=== PATIENT | female | born 1990 | race Caucasian/White ===

== ENCOUNTER 2017-11-24 19:22 | Emergency (ER) | payer OTHER ==
[2017-11-24 19:32] VITALS: RESP 18
[2017-11-24] MEDS ORDERED: METOCLOPRAMIDE 5 MG/ML 2 ML VIAL IVP STA (20:20)
[2017-11-24] MEDS ORDERED: SODIUM CHLORIDE 0.9% 1,000 ML IV STA (20:20)
[2017-11-24] MEDS ORDERED: diphenhydrAMINE 50 MG/ML 1 ML VIAL IVP STA (20:20)
[2017-11-24] MEDS ORDERED: KETOROLAC 30 MG/ML 1 ML VIAL IVP STA (20:20)
[2017-11-24] MEDS ORDERED: ORPHENADRINE 30 MG/ML 2 ML VIAL IVP STA (20:21)
--- NOTE | 2017-11-24 20:22 | ED ---
Headache HPI - General Chief Complaint: Headache Stated Complaint: unrelenting migraine Time Seen by Provider: 11/24/17 20:08 Source: RN notes reviewed, old records reviewed Mode of arrival: ambulatory Limitations: no limitations - History of Present Illness Initial Comments: 27-year-old [employer] presents emergency department today she complaint of migraine headache that started at 4 PM. She reports that she works as a need a note for work. Patient states that she has history of migraines. She states that she usually gets them once or twice a month of this week this month she's had them more frequently. Patient states that she has no significant blurry vision or any other neurological findings or deficits. - Related Data Home Medications Medication Instructions Recorded Confirmed Lurasidone [Latuda] 40 mg PO DAILY 11/24/17 11/24/17 Phentermine HCl [Adipex-P] 37.5 mg PO QAM 11/24/17 11/24/17 lamoTRIgine [LaMICtal] 200 mg PO BID 11/24/17 11/24/17 Previous Rx's Medication Instructions Recorded Ondansetron Odt [Zofran Odt] 4 mg PO Q8HR PRN #12 tab 11/24/17 Allergies Allergy/AdvReac Type Severity Reaction Status Date / Time Sulfa (Sulfonamide Allergy Rash/Hives Verified 11/24/17 20:10 Antibiotics) sulfamethoxazole Allergy Rash/Hives Verified 11/24/17 20:10 [From Bactrim] trimethoprim [From Bactrim] Allergy Rash/Hives Verified 11/24/17 20:10 Review of Systems ROS Statement: Those systems with pertinent positive or pertinent negative responses have been documented in the HPI. ROS Other: All systems not noted in ROS Statement are negative. Past Medical History Additional Past Medical History / Comment(s): FX OF LEFT FOOT, History of Any Multi-Drug Resistant Organisms: None Reported Past Surgical History: Tonsillectomy, Tubal Ligation Additional Past Surgical History / Comment(s): LEEP Past Anesthesia/Blood Transfusion Reactions: Postoperative Nausea & Vomiting ( PONV) Past Psychological History: Anxiety, Bipolar, Depression Smoking Status: Former smoker Past Alcohol Use History: None Reported Past Drug Use History: None Reported - Past Family History Mother Family Medical History: Cancer Additional Family Medical History / Comment(s): TYHROID General Exam - General Exam Comments Initial Comments: Well appearing 27 year old female, no distress. Limitations: no limitations General appearance: alert, in no apparent distress Head exam: Present: atraumatic, normocephalic, normal inspection Eye exam: Present: normal appearance, PERRL, EOMI. Absent: scleral icterus, conjunctival injection, periorbital swelling ENT exam: Present: normal exam, mucous membranes moist Neck exam: Present: normal inspection. Absent: tenderness, meningismus, lymphadenopathy Respiratory exam: Present: normal lung sounds bilaterally. Absent: respiratory distress, wheezes, rales, rhonchi, stridor Cardiovascular Exam: Present: regular rate, normal rhythm, normal heart sounds. Absent: systolic murmur, diastolic murmur, rubs, gallop, clicks GI/Abdominal exam: Present: soft, normal bowel sounds. Absent: distended, tenderness, guarding, rebound, rigid Back exam: Present: normal inspection Neurological exam: Present: alert, oriented X3, CN II-XII intact Psychiatric exam: Present: normal affect, normal mood Skin exam: Present: warm, dry, intact, normal color. Absent: rash Course Vital Signs 11/24/17 11/24/17 19:30 21:45 Temperature 98.3 F 98.2 F Pulse Rate 103 H 69 Respiratory 18 18 Rate Blood Pressure 118/71 105/59 O2 Sat by Pulse 100 99 Oximetry Medical Decision Making - Medical Decision Making Patient is a 27 year old female with migraine headache for a few hours. Patient has no neurologicacl deficits and states this is siiliar to all previous migraines. Patient was given migraine cocktail and reports that her migrinae is diminished and 1 out of 10 pain. She would like to go home. will discharge patient with nausea medication to use if she has reccurent migraine. All questions answered and return parameters discussed. Disposition Clinical Impression: Migraine Disposition: HOME SELF-CARE Condition: Good Instructions: Migraine Headache (ED) Additional Instructions: Patient advised to follow-up with primary care provider. Take the nausea medicine, Motrin Tylenol or Benadryl as well. Return to the emergency department if any alarming signs or symptoms occur. Prescriptions: Ondansetron Odt [Zofran Odt] 4 mg PO Q8HR PRN #12 tab PRN Reason: Nausea Referrals: Radhames Oshea MD [Primary Care Provider] - 1-2 days Time of Disposition: 21:13
[2017-11-24 21:46] VITALS: BP 105/59; PULSE 69; TEMP 98.2
== END 2017-11-24 21:46 | disposition home or self-care (01) ==
LOC: EC 19:22
DX: G43.909 Migraine, unspecified, not intractable, without status migrainosus (principal); F31.9 Bipolar disorder, unspecified; F41.9 Anxiety disorder, unspecified; Z87.891 Personal history of nicotine dependence; Z79.899 Other long term (current) drug therapy; Z88.2 Allergy status to sulfonamides
CPT/HCPCS: 99283; 96374; 96375 ×3; 96361; J1200; J2360; J2765; J1885

== ENCOUNTER 2018-01-11 20:25 | Emergency (ER) | payer OTHER ==
[2018-01-11 20:39] VITALS: BP 118/80; PULSE 108; RESP 18; TEMP 97.8
--- NOTE | 2018-01-11 21:14 | ED ---
Psych HPI - General Chief Complaint: Psychiatric Symptoms Stated Complaint: mental health Time Seen by Provider: 01/11/18 21:02 Source: patient Mode of arrival: ambulatory - History of Present Illness Initial Comments: 's patient is 27-year-old woman who states that she has a diagnosis of bipolar disorder and presents today because she feels her symptoms are getting worse. She states that she has been experiencing mood swings, increasing depression, and also having thoughts of suicide. She states that her medications were changed one month ago. She is currently taking Latuda and Geodon. She states the Geodon was started about a month ago the Lamictal was stopped. She feels that since that time her symptoms have been worsening. She feels she is not able to function. She is not sleeping well. MD Complaint: suicidal ideation, feels depressed -: days(s) Associated Psychiatric Symptoms: suicidal ideation, racing thoughts History of same: Yes Quality: getting worse Improves With: none Worsens With: none Context: new medication(s) - Related Data Home Medications Medication Instructions Recorded Confirmed Lurasidone [Latuda] 40 mg PO DAILY 11/24/17 01/11/18 Ziprasidone [Geodon] 20 mg PO DAILY 01/11/18 01/11/18 Allergies Allergy/AdvReac Type Severity Reaction Status Date / Time Sulfa (Sulfonamide Allergy Rash/Hives Verified 01/11/18 22:12 Antibiotics) sulfamethoxazole Allergy Rash/Hives Verified 01/11/18 22:12 [From Bactrim] trimethoprim [From Bactrim] Allergy Rash/Hives Verified 01/11/18 22:12 Review of Systems ROS Statement: Those systems with pertinent positive or pertinent negative responses have been documented in the HPI. ROS Other: All systems not noted in ROS Statement are negative. Constitutional: Denies: fever Eyes: Denies: vision change Respiratory: Denies: cough, dyspnea Cardiovascular: Denies: chest pain, syncope Gastrointestinal: Denies: abdominal pain, vomiting, diarrhea Genitourinary: Denies: dysuria, hematuria Musculoskeletal: Denies: back pain Skin: Denies: rash Neurological: Denies: headache, weakness Psychiatric: Reports: depression, suicidal thoughts. Denies: auditory hallucinations, visual hallucinations, homicidal thoughts Past Medical History Past Medical History: No Reported History Additional Past Medical History / Comment(s): FX OF LEFT FOOT, History of Any Multi-Drug Resistant Organisms: None Reported Past Surgical History: Tonsillectomy, Tubal Ligation Additional Past Surgical History / Comment(s): LEEP Past Anesthesia/Blood Transfusion Reactions: Postoperative Nausea & Vomiting ( PONV) Past Psychological History: Anxiety, Bipolar, Depression Smoking Status: Light tobacco smoker Past Alcohol Use History: None Reported Past Drug Use History: None Reported - Past Family History Mother Family Medical History: Cancer Additional Family Medical History / Comment(s): TYHROID General Exam Limitations: no limitations General appearance: alert, in no apparent distress, other (Tearful) Head exam: Present: atraumatic, normocephalic Eye exam: Present: normal appearance. Absent: scleral icterus, conjunctival injection ENT exam: Present: normal oropharynx, mucous membranes moist Respiratory exam: Present: normal lung sounds bilaterally. Absent: respiratory distress, wheezes, rales, rhonchi, stridor Cardiovascular Exam: Present: regular rate, normal rhythm, normal heart sounds. Absent: systolic murmur, diastolic murmur, rubs, gallop GI/Abdominal exam: Present: soft. Absent: distended, tenderness, guarding Extremities exam: Present: normal inspection, normal capillary refill Neurological exam: Present: alert Psychiatric exam: Present: depressed, suicidal ideation. Absent: agitated, flat affect, manic, homicidal ideation Skin exam: Present: warm, dry, intact, normal color. Absent: rash Course Vital Signs 01/11/18 20:35 Temperature 97.8 F Pulse Rate 108 H Respiratory 18 Rate Blood Pressure 118/80 O2 Sat by Pulse 99 Oximetry Medical Decision Making - Lab Data Lab Results 01/11/18 01/11/18 Range/Units 20:34 20:34 Urine HCG, Qual Not Detected (Not Detectd) Urine Opiates Screen Not Detected (NotDetected) Ur Oxycodone Screen Not Detected (NotDetected) Urine Methadone Screen Not Detected (NotDetected) Ur Propoxyphene Screen Not Detected (NotDetected) Ur Barbiturates Screen Not Detected (NotDetected) U Tricyclic Antidepress Not Detected (NotDetected) Ur Phencyclidine Scrn Not Detected (NotDetected) Ur Amphetamines Screen Detected H (NotDetected) U Methamphetamines Scrn Not Detected (NotDetected) U Benzodiazepines Scrn Not Detected (NotDetected) Urine Cocaine Screen Not Detected (NotDetected) U Marijuana (THC) Screen Not Detected (NotDetected) Disposition Clinical Impression: Mood disorder Disposition: HOME SELF-CARE Condition: Good Instructions: Mood Disorders (ED) Is patient prescribed a controlled substance at d/c from ED?: No Referrals: Radhames Oshea MD [Primary Care Provider] - 1-2 days
[2018-01-11 21:25] LABS: Amphetamine Screen,Urine Detected (NotDetected); Barbiturate Screen,Urine Not Detected (NotDetected); Benzodiazepines Screen,Urine Not Detected (NotDetected); Cocaine Screen,Urine Not Detected (NotDetected); Methadone Screen, Urine Not Detected (NotDetected); Opiate Screen,Urine Not Detected (NotDetected); Oxycodone Screen, Urine Not Detected (NotDetected); Phencyclidine Screen,Urine Not Detected (NotDetected); Tricyclic Antidepressant,Urine Not Detected (NotDetected); Urn Cannabinoid Scrn Not Detected (NotDetected)
[2018-01-11] MEDS ORDERED: LORazepam 1 MG TAB ONE (23:30)
== END 2018-01-11 23:20 | disposition home or self-care (01) ==
LOC: EC 20:25
DX: F31.9 Bipolar disorder, unspecified (principal); F41.9 Anxiety disorder, unspecified; F17.200 Nicotine dependence, unspecified, uncomplicated; Z79.899 Other long term (current) drug therapy; Z88.2 Allergy status to sulfonamides
CPT/HCPCS: 80306; 81025; 82075; 99284

== ENCOUNTER 2018-03-16 02:02 | Emergency (ER) | payer OTHER ==
[2018-03-16] MEDS ORDERED: METOCLOPRAMIDE 5 MG/ML 2 ML VIAL IVP STA (02:30)
[2018-03-16] MEDS ORDERED: KETOROLAC 30 MG/ML 1 ML VIAL IVP STA (02:30)
[2018-03-16] MEDS ORDERED: diphenhydrAMINE 50 MG/ML 1 ML VIAL IVP STA (02:30)
[2018-03-16] MEDS ORDERED: SODIUM CHLORIDE 0.9% 1,000 ML IV ONE (02:30)
[2018-03-16 03:39] VITALS: BP 102/52; PULSE 61; RESP 18; TEMP 98.3
--- NOTE | 2018-03-16 04:09 | ED ---
Headache HPI - General Chief Complaint: Headache Stated Complaint: Migraine Time Seen by Provider: 03/16/18 02:11 Mode of arrival: ambulatory Limitations: no limitations - History of Present Illness Initial Comments: 28-year-old female patient presents the emergency department today for evaluation of migraine headache. Migraine started approximately 7 AM yesterday morning. Patient states that the headache is mostly frontal. States she is sensitive to light and sound. Patient states she is mildly nauseated. She denies any dizziness, numbness, tingling, or weakness. Patient states she does have a history of migraine headaches. States that her symptoms are typical for her usual migraine pattern. She denies any new symptoms. States she did take Excedrin earlier today without relief of symptoms. Patient denies any recent rash, fever, chills, shortness breath, chest pain, abdominal pain, diarrhea, constipation, back pain, hematuria, dysuria, urinary urgency, urinary frequency , or any other complaints. - Related Data Home Medications Medication Instructions Recorded Confirmed Lurasidone [Latuda] 40 mg PO DAILY 11/24/17 01/11/18 Ziprasidone [Geodon] 20 mg PO DAILY 01/11/18 01/11/18 Allergies Allergy/AdvReac Type Severity Reaction Status Date / Time Sulfa (Sulfonamide Allergy Rash/Hives Verified 03/16/18 02:07 Antibiotics) sulfamethoxazole Allergy Rash/Hives Verified 03/16/18 02:07 [From Bactrim] trimethoprim [From Bactrim] Allergy Rash/Hives Verified 03/16/18 02:07 Review of Systems ROS Statement: Those systems with pertinent positive or pertinent negative responses have been documented in the HPI. ROS Other: All systems not noted in ROS Statement are negative. Past Medical History Past Medical History: No Reported History Additional Past Medical History / Comment(s): FX OF LEFT FOOT, migraines History of Any Multi-Drug Resistant Organisms: None Reported Past Surgical History: Tonsillectomy, Tubal Ligation Additional Past Surgical History / Comment(s): LEEP Past Anesthesia/Blood Transfusion Reactions: Postoperative Nausea & Vomiting ( PONV) Past Psychological History: Anxiety, Bipolar, Depression Smoking Status: Light tobacco smoker Past Alcohol Use History: None Reported Past Drug Use History: None Reported - Past Family History Mother Family Medical History: Cancer Additional Family Medical History / Comment(s): TYHROID General Exam Limitations: no limitations General appearance: alert, in no apparent distress, other (This is a well- developed, well-nourished adult female patient in no acute distress. Vital signs upon presentation are temperature 98.2F, pulse 81, respirations 16, blood pressure 103/65, pulse ox 99% on room air.) Eye exam: Present: normal appearance, PERRL, EOMI. Absent: scleral icterus, conjunctival injection, nystagmus, periorbital swelling ENT exam: Present: normal exam, normal oropharynx, mucous membranes moist Neck exam: Present: normal inspection. Absent: tenderness, meningismus, lymphadenopathy Respiratory exam: Present: normal lung sounds bilaterally. Absent: respiratory distress, wheezes, rales, rhonchi, stridor Cardiovascular Exam: Present: regular rate, normal rhythm, normal heart sounds. Absent: systolic murmur, diastolic murmur, rubs, gallop, clicks Neurological exam: Present: alert, oriented X3, CN II-XII intact, other ( Strength in all 4 extremities is 5/5.) Psychiatric exam: Present: normal affect, normal mood Skin exam: Present: warm, dry, intact, normal color. Absent: rash Course Vital Signs 03/16/18 03/16/18 02:05 03:34 Temperature 98.2 F 98.3 F Pulse Rate 81 61 Respiratory 16 18 Rate Blood Pressure 103/65 102/52 O2 Sat by Pulse 99 100 Oximetry Medical Decision Making - Medical Decision Making 28-year-old female patient presented to the emergency department today for evaluation of migraine headache. States her symptoms are very typical for her usual migraine pattern. Physical examination is unremarkable. Patient is neurologically intact. Patient did receive IV fluids, Reglan, Benadryl, and Toradol here in the emergency department. Upon reevaluation patient is much improved, rating her pain is 0 out of 10 on the pain scale. She states she is ready to be discharged. She is instructed to follow-up with her primary care physician for recheck in 1-2 days. Return parameters discussed in detail. She verbalizes understanding and agrees with this plan. Disposition Clinical Impression: Migraine headache Disposition: HOME SELF-CARE Condition: Good Instructions: Migraine Headache (ED) Additional Instructions: Increase fluids. Rest. Follow up with your primary care physician for recheck in 1-2 days. Return here immediately for any new, worsening, or concerning symptoms. Is patient prescribed a controlled substance at d/c from ED?: No Referrals: Radhames Oshea MD [Primary Care Provider] - 1-2 days Time of Disposition: 04:09
== END 2018-03-16 04:17 | disposition home or self-care (01) ==
LOC: EC 02:02
DX: G43.909 Migraine, unspecified, not intractable, without status migrainosus (principal); F41.9 Anxiety disorder, unspecified; F31.9 Bipolar disorder, unspecified; F17.200 Nicotine dependence, unspecified, uncomplicated; Z79.899 Other long term (current) drug therapy; Z88.1 Allergy status to other antibiotic agents; Z88.2 Allergy status to sulfonamides
CPT/HCPCS: 99283; 96374; 96375 ×2; 96361; J1200; J2765; J1885

== ENCOUNTER 2018-07-20 00:24 | Emergency (ER) | payer OTHER ==
--- NOTE | 2018-07-20 01:17 | ED ---
General Adult HPI - General Source: patient, RN notes reviewed Mode of arrival: ambulatory Limitations: no limitations <Ryan Borrero P - Last Filed: 07/20/18 02:39> <Mariel Melendez P - Last Filed: 07/20/18 03:58> - General Chief complaint: Abdominal Pain Stated complaint: poss ectopic Time Seen by Provider: 07/20/18 00:35 - History of Present Illness Initial comments: 28-year-old female presents to the emergency department for a chief complaint of lower abdominal cramping times one week. Patient states she has also had breast tenderness for the past month. She states that yesterday she started her period but it is forest fire fighter than normal. Patient states that all the symptoms are consistent with her past . She states that she had a tubal ligation 5 years ago but checked a test earlier today. Patient says the test was positive and she is concerned for ectopic . She denies any pain but admits to the cramping. She denies any vaginal discharge besides bleeding. She admits to mild nausea times one day but denies vomiting. She states that she think this is due to nerves. Patient has no other complaints at this time including shortness of breath, chest pain, abdominal pain, nausea or vomiting, headache, or visual changes. (Ryan Borrero) - Related Data Home Medications Medication Instructions Recorded Confirmed Lurasidone [Latuda] 40 mg PO DAILY 11/24/17 01/11/18 Ziprasidone [Geodon] 20 mg PO DAILY 01/11/18 01/11/18 Allergies Allergy/AdvReac Type Severity Reaction Status Date / Time Sulfa (Sulfonamide Allergy Rash/Hives Verified 07/20/18 00:32 Antibiotics) sulfamethoxazole Allergy Rash/Hives Verified 07/20/18 00:32 [From Bactrim] trimethoprim [From Bactrim] Allergy Rash/Hives Verified 07/20/18 00:32 Review of Systems ROS Other: All systems not noted in ROS Statement are negative. <Ryan Borrero P - Last Filed: 07/20/18 02:39> ROS Other: All systems not noted in ROS Statement are negative. <Mariel Melendez P - Last Filed: 07/20/18 03:58> ROS Statement: Those systems with pertinent positive or pertinent negative responses have been documented in the HPI. Past Medical History Past Medical History: No Reported History Additional Past Medical History / Comment(s): migraines History of Any Multi-Drug Resistant Organisms: None Reported Past Surgical History: Tonsillectomy, Tubal Ligation Additional Past Surgical History / Comment(s): LEEP Past Anesthesia/Blood Transfusion Reactions: Postoperative Nausea & Vomiting ( PONV) Past Psychological History: Anxiety, Depression Smoking Status: Current some day smoker Past Alcohol Use History: None Reported Past Drug Use History: None Reported - Past Family History Mother Family Medical History: Cancer Additional Family Medical History / Comment(s): TYHROID <Ryan Borrero P - Last Filed: 07/20/18 02:39> General Exam Limitations: no limitations General appearance: alert, in no apparent distress Head exam: Present: atraumatic, normocephalic, normal inspection Eye exam: Present: normal appearance, PERRL, EOMI. Absent: scleral icterus, conjunctival injection, periorbital swelling ENT exam: Present: normal exam, normal oropharynx, mucous membranes moist Neck exam: Present: normal inspection. Absent: tenderness, meningismus, lymphadenopathy Respiratory exam: Present: normal lung sounds bilaterally. Absent: respiratory distress, wheezes, rales, rhonchi, stridor Cardiovascular Exam: Present: regular rate, normal rhythm, normal heart sounds. Absent: systolic murmur, diastolic murmur, rubs, gallop, clicks GI/Abdominal exam: Present: soft, normal bowel sounds. Absent: distended, tenderness, guarding, rebound, rigid Neurological exam: Present: alert, oriented X3, CN II-XII intact Psychiatric exam: Present: normal affect, normal mood <Ryan Borrero P - Last Filed: 07/20/18 02:39> Vital Signs 07/20/18 07/20/18 00:28 02:58 Temperature 98.2 F 97.3 F L Pulse Rate 90 75 Respiratory 18 16 Rate Blood Pressure 98/61 107/70 O2 Sat by Pulse 100 99 Oximetry Medical Decision Making - Lab Data Result diagrams: 07/20/18 01:30 07/20/18 01:30 <Ryan Borrero P - Last Filed: 07/20/18 02:39> - Lab Data Result diagrams: 07/20/18 01:30 07/20/18 01:30 <Mariel Melendez P - Last Filed: 07/20/18 03:58> - Medical Decision Making 28-year-old female resents to the emergency department for a chief complaint of abdominal cramping times one week. Patient is concerned she may be and had a tubal ligation so is concern for ectopic . Patient states she is unsure if it is an ectopic or if she is having a period that is different than normal. Patient states she did have a positive test at home which prompted her to present to the emergency department. Patient states she began having vaginal bleeding yesterday. On exam patient does not have any tenderness in the abdomen. She is well appearing. CBC and BMP are unremarkable. Ultrasound showed a normal empty uterus without evidence of adnexal mass or ovarian torsion. No evidence of ectopic . Patient' s beta hCG is less than 2.4. Patient likely had a false positive test at home. Patient is likely having irregular menstruation. She will follow up with primary care in 1-2 days. Patient will return to the emergency Department if she has any worsening symptoms. (Ryan Borrero) I was available for consultation in the emergency department. The history and physical exam were done by the midlevel provider. I was consulted for this patient's care. I reviewed the case with the midlevel provider and based on their presentation of the patient, I agree with the assessment, medical decision making and plan of care as documented.. (Mariel Melendez) - Lab Data Lab Results 07/20/18 07/20/18 07/20/18 Range/Units 01:30 01:30 01:30 WBC 11.4 H (3.8-10.6) k/uL RBC 4.69 (3.80-5.40) m/uL Hgb 13.7 (11.4-16.0) gm/dL Hct 40.8 (34.0-46.0) % MCV 87.1 (80.0-100.0) fL MCH 29.2 (25.0-35.0) pg MCHC 33.5 (31.0-37.0) g/dL RDW 12.9 (11.5-15.5) % Plt Count 272 (150-450) k/uL Neutrophils % 57 % Lymphocytes % 30 % Monocytes % 7 % Eosinophils % 3 % Basophils % 1 % Neutrophils # 6.5 (1.3-7.7) k/uL Lymphocytes # 3.4 (1.0-4.8) k/uL Monocytes # 0.8 (0-1.0) k/uL Eosinophils # 0.3 (0-0.7) k/uL Basophils # 0.1 (0-0.2) k/uL Sodium 138 (137-145) mmol/L Potassium 3.9 (3.5-5.1) mmol/L Chloride 102 (98-107) mmol/L Carbon Dioxide 27 (22-30) mmol/L Anion Gap 9 mmol/L BUN 26 H (7-17) mg/dL Creatinine 0.88 (0.52-1.04) mg/dL Est GFR (CKD-EPI)AfAm >90 (>60 ml/min/1.73 sqM) Est GFR (CKD-EPI)NonAf >90 (>60 ml/min/1.73 sqM) Glucose 86 (74-99) mg/dL Calcium 10.2 (8.4-10.2) mg/dL HCG, Quant <2.4 mIU/mL Blood Type A Positive Blood Type Recheck No Disposition Is patient prescribed a controlled substance at d/c from ED?: No Time of Disposition: 02:42 <Ryan Borrero P - Last Filed: 07/20/18 02:39> <Mariel Melendez P - Last Filed: 07/20/18 03:58> Clinical Impression: Vaginal bleeding Disposition: HOME SELF-CARE Condition: Good Instructions: Dysmenorrhea (ED) Additional Instructions: Please take Motrin or Tylenol for pain. Please follow-up with primary care in 1 -2 days. Please return to the emergency department if you have any worsening symptoms. Referrals: Radhames Oshea MD [Primary Care Provider] - 1-2 days
--- NOTE | 2018-07-20 01:28 | US ---
EXAMINATION TYPE: Transabdominal DATE OF EXAM: 12/28/17 COMPARISON: NONE CLINICAL HISTORY: Pain. +Preg s/p tubal ligation . Tubal ligation 2012 + HCG test at home. EXAM PERFORMED: Transabdominal (TA) EXAM MEASUREMENTS: GESTATIONAL AGE / DATING Physician Established: Not yet established ) Dates by LMP: LMP unknown Dates by First Scan: No previous this is first scan Dates by Current Scan for: No IUP seen at this time MATERNAL ANATOMY Uterus: 8.1 x 4.5 x 6.2 cm Right Ovary: 2.7 x 1.7 x 1.7 cm Left Ovary: 3.3 x 1.5 x 1.7 cm Post CDS / Adnexa: wnl Presence of free fluid: no Presence of corpus luteal cyst: no GESTATION / SURVEY IUP: No IUP seen at this time Beta HcG (if available): Not available at this time IMPRESSION: Normal uterus and endometrium. Empty uterus. No adnexal mass. No evidence of ovarian torsion. No evid ence of ectopic .
[2018-07-20 01:42] LABS: Basophils # (A) 0.1 k/uL (0-0.2); Basophils % (A) 1 %; Eosinophils # (A) 0.3 k/uL (0-0.7); Eosinophils % (A) 3 %; HCT 40.8 % (34.0-46.0); HGB 13.7 gm/dL (11.4-16.0); Lymphocytes # (A) 3.4 k/uL (1.0-4.8); Lymphocytes % (A) 30 %; MCH 29.2 pg (25.0-35.0); MCHC 33.5 g/dL (31.0-37.0); MCV 87.1 fL (80.0-100.0); Mean Platelet Volume 6.9; Monocytes # (A) 0.8 k/uL (0-1.0); Monocytes % (A) 7 %; Neutrophils # (A) 6.5 k/uL (1.3-7.7); Neutrophils % (A) 57 %; Platelet Count 272 k/uL (150-450); RBC 4.69 m/uL (3.80-5.40); RDW 12.9 % (11.5-15.5); WBC 11.4 k/uL (3.8-10.6)
[2018-07-20 01:49] LABS: Anion Gap 9 mmol/L; Blood Urea Nitrogen 26 mg/dL (7-17); Calcium 10.2 mg/dL (8.4-10.2); Carbon Dioxide 27 mmol/L (22-30); Chloride 102 mmol/L (98-107); Glucose 86 mg/dL (74-99); Potassium 3.9 mmol/L (3.5-5.1); Sodium 138 mmol/L (137-145)
[2018-07-20 02:06] LABS: HCG,Quantitative Serum <2.4 mIU/mL
[2018-07-20 03:00] VITALS: BP 107/70; PULSE 75; RESP 16; TEMP 97.3
== END 2018-07-20 02:58 | disposition home or self-care (01) ==
LOC: EC 00:24
DX: N93.9 Abnormal uterine and vaginal bleeding, unspecified (principal); R10.30 Lower abdominal pain, unspecified; R11.0 Nausea; F41.9 Anxiety disorder, unspecified; F32.9 Major depressive disorder, single episode, unspecified; F17.200 Nicotine dependence, unspecified, uncomplicated; Z98.51 Tubal ligation status; Z79.899 Other long term (current) drug therapy; Z88.2 Allergy status to sulfonamides
CPT/HCPCS: 36415; 76801; 76817; 80048; 84702; 85025; 86900; 86901; 93975; 99284

== ENCOUNTER 2018-10-31 17:48 | Emergency (ER) | payer OTHER ==
[2018-10-31 18:03] VITALS: TEMP 98.2
--- NOTE | 2018-10-31 19:34 | ED ---
General Adult HPI - General Chief complaint: Neuro Symptoms/Deficit Stated complaint: Facial weakness Time Seen by Provider: 10/31/18 18:33 Source: patient, RN notes reviewed Mode of arrival: ambulatory Limitations: no limitations - History of Present Illness Initial comments: Patient is a pleasant 28-year-old female presenting to the emergency Department with complaints of left facial weakness. Patient noticed symptoms when she woke this morning. Patient has noticed that her left forehead is also involved and he has some decreased strength of her left eyelid. Patient denies any loss of sensation. Patient denies any speech problems or visual changes. No extremity weakness or paresthesias. No history of similar symptoms previous. Patient states she did have cold symptoms a couple weeks ago. - Related Data Home Medications Medication Instructions Recorded Confirmed Lurasidone [Latuda] 40 mg PO DAILY 11/24/17 01/11/18 Ziprasidone [Geodon] 20 mg PO DAILY 01/11/18 01/11/18 Previous Rx's Medication Instructions Recorded predniSONE 20 mg PO TID #21 tab 10/31/18 valACYclovir HCL [Valtrex] 1,000 mg PO TID #21 tablet 10/31/18 Allergies Allergy/AdvReac Type Severity Reaction Status Date / Time Sulfa (Sulfonamide Allergy Rash/Hives Verified 07/20/18 00:32 Antibiotics) sulfamethoxazole Allergy Rash/Hives Verified 07/20/18 00:32 [From Bactrim] trimethoprim [From Bactrim] Allergy Rash/Hives Verified 07/20/18 00:32 Review of Systems ROS Statement: Those systems with pertinent positive or pertinent negative responses have been documented in the HPI. ROS Other: All systems not noted in ROS Statement are negative. Constitutional: Denies: fever Eyes: Denies: eye pain, vision change ENT: Denies: ear pain, throat pain Respiratory: Denies: cough Cardiovascular: Denies: chest pain Endocrine: Denies: fatigue Gastrointestinal: Denies: abdominal pain Genitourinary: Denies: dysuria Musculoskeletal: Denies: back pain Skin: Denies: rash Neurological: Reports: as per HPI. Denies: headache Past Medical History Past Medical History: No Reported History Additional Past Medical History / Comment(s): migraines History of Any Multi-Drug Resistant Organisms: None Reported Past Surgical History: Tonsillectomy, Tubal Ligation Additional Past Surgical History / Comment(s): LEEP, left foot Past Anesthesia/Blood Transfusion Reactions: Postoperative Nausea & Vomiting ( PONV) Past Psychological History: Anxiety, Depression, PTSD Smoking Status: Current some day smoker Past Alcohol Use History: None Reported Past Drug Use History: None Reported - Past Family History Mother Family Medical History: Cancer Additional Family Medical History / Comment(s): TYHROID General Exam Limitations: no limitations General appearance: alert, in no apparent distress Head exam: Present: atraumatic Eye exam: Present: normal appearance, PERRL, EOMI ENT exam: Present: normal oropharynx Neck exam: Present: normal inspection Respiratory exam: Present: normal lung sounds bilaterally Cardiovascular Exam: Present: regular rate, normal rhythm GI/Abdominal exam: Present: soft. Absent: tenderness Extremities exam: Present: normal inspection Neurological exam: Present: alert, oriented X3, CN II-XII intact (Except for left facial weakness that also includes forehead and eyelids.) Expanded Neurological exam: Present: protecting the airway Speech: Present: fluid speech Cranial nerves: Facial Sensation: Normal Sensory exam: Upper Extremity Light Touch: Normal, Lower Extremity Light Touch: Normal Motor strength exam: RUE: 5, LUE: 5, RLE: 5, LLE: 5 Eye Response: (4) open spontaneously Motor Response: (6) obeys commands Verbal Response: (5) oriented Psychiatric exam: Present: normal affect, normal mood Skin exam: Present: normal color Course Vital Signs 10/31/18 17:58 Temperature 98.2 F Pulse Rate 111 H Respiratory 18 Rate Blood Pressure 116/69 O2 Sat by Pulse 98 Oximetry Disposition Clinical Impression: Kelsey's palsy Disposition: HOME SELF-CARE Condition: Stable Instructions (If sedation given, give patient instructions): Kelsey Palsy (ED) Additional Instructions: Please follow-up with primary care physician in the next couple days for recheck. Return for other areas of weakness, confusion, worsening symptoms or other concerns. Please tape your eye shut at nighttime so does not dry out. Please use Lacri-Lube or other similar drops 4 times daily and prior to going to bed. Prescriptions: predniSONE 20 mg PO TID #21 tab valACYclovir HCL [Valtrex] 1,000 mg PO TID #21 tablet Is patient prescribed a controlled substance at d/c from ED?: No Referrals: Radhames Oshea MD [Primary Care Provider] - 1-2 days Time of Disposition: 19:32
[2018-10-31 19:45] VITALS: BP 98/86; PULSE 100; RESP 14
== END 2018-10-31 19:43 | disposition home or self-care (01) ==
LOC: EC 17:48
DX: G51.0 Bell's palsy (principal); F32.9 Major depressive disorder, single episode, unspecified; F43.10 Post-traumatic stress disorder, unspecified; F17.200 Nicotine dependence, unspecified, uncomplicated; Z79.899 Other long term (current) drug therapy; Z88.2 Allergy status to sulfonamides
CPT/HCPCS: 99283

== ENCOUNTER 2023-11-10 18:54 | Emergency (ER) | payer OTHER ==
[2023-11-10 19:33] VITALS: BP 159/97; PULSE 90; RESP 18; TEMP 98.7
--- NOTE | 2023-11-10 20:32 | ED ---
General Adult HPI - General Chief complaint: Recheck/Abnormal Lab/Rx Stated complaint: Covid testing Time Seen by Provider: 11/10/23 19:53 Source: patient Mode of arrival: ambulatory Limitations: no limitations - History of Present Illness Initial comments: 33-year-old female requesting COVID testing. She has had cough and congestion for the last 3 days. She admits to fatigue and bodyaches. No chest pain, difficulty breathing, abdominal pain, nausea, vomiting, diarrhea, dizziness, neck stiffness. COVID testing is required by her employer. - Related Data Home Medications Medication Instructions Recorded Confirmed Dextroamphetamine/Amphetamine 15 mg PO BID 10/31/18 10/31/18 [Adderall] Sertraline [Zoloft] 25 mg PO DAILY 10/31/18 10/31/18 Sertraline [Zoloft] 100 mg PO DAILY 10/31/18 10/31/18 Previous Rx's Medication Instructions Recorded predniSONE [Deltasone] 20 mg PO TID #21 tab 10/31/18 valACYclovir HCL [Valtrex] 1,000 mg PO TID #21 tablet 10/31/18 Allergies Allergy/AdvReac Type Severity Reaction Status Date / Time Sulfa (Sulfonamide Allergy Rash/Hives Verified 11/10/23 19:16 Antibiotics) sulfamethoxazole Allergy Rash/Hives Verified 11/10/23 19:16 [From Bactrim] trimethoprim [From Bactrim] Allergy Rash/Hives Verified 11/10/23 19:16 Review of Systems ROS Statement: Those systems with pertinent positive or pertinent negative responses have been documented in the HPI. ROS Other: All systems not noted in ROS Statement are negative. Past Medical History Past Medical History: No Reported History Additional Past Medical History / Comment(s): migraines History of Any Multi-Drug Resistant Organisms: None Reported Past Surgical History: Tonsillectomy, Tubal Ligation Additional Past Surgical History / Comment(s): LEEP, left foot Past Anesthesia/Blood Transfusion Reactions: Postoperative Nausea & Vomiting (PONV) Past Psychological History: Anxiety, Depression, PTSD Smoking Status: Vaper Past Alcohol Use History: Occasional Past Drug Use History: None Reported - Past Family History Mother Family Medical History: Cancer Additional Family Medical History / Comment(s): TYHROID General Exam Limitations: no limitations General appearance: alert, in no apparent distress Head exam: Present: atraumatic, normocephalic Eye exam: Present: normal appearance Neck exam: Present: normal inspection Respiratory exam: Present: normal lung sounds bilaterally. Absent: respiratory distress, wheezes, rales, rhonchi, stridor Cardiovascular Exam: Present: regular rate, normal rhythm, normal heart sounds. Absent: systolic murmur, diastolic murmur, rubs, gallop, clicks Neurological exam: Present: alert, oriented X3 Psychiatric exam: Present: normal affect, normal mood Skin exam: Present: warm, dry Course Vital Signs 11/10/23 19:13 Temperature 98.7 F Pulse Rate 90 Respiratory 18 Rate Blood Pressure 159/97 O2 Sat by Pulse 100 Oximetry Medical Decision Making - Medical Decision Making Was pt. sent in by a medical professional or institution (NUSR[facility] Contreras, [employer], urgent care, hospital, or fci...) When possible be specific @ -No Did you speak to anyone other than the patient for history (EMS, parent, family, police, friend...)? What history was obtained from this source @ -No Did you review nursing and triage notes (agree or disagree)? Why? @ -I reviewed and agree with nursing and triage notes Were old charts reviewed (outside hosp., previous admission, EMS record, old EKG, old radiological studies, urgent care reports/EKG's, fci records)? Report findings @ -No old charts were reviewed Differential Diagnosis (chest pain, altered mental status, abdominal pain women, abdominal pain men, vaginal bleeding, weakness, fever, dyspnea, syncope, headache, dizziness, GI bleed, back pain, seizure, CVA, palpatations, mental health, musculoskeletal)? @ -Differential includes influenza, RSV, COVID, other viral URI, this is not an all-inclusive list EKG interpreted by me (3pts min.). @ -As above X-rays interpreted by me (1pt min.). @ -None done CT interpreted by me (1pt min.). @ -None done U/S interpreted by me (1pt. min.). @ -None done What testing was considered but not performed or refused? (CT, X-rays, U/S, labs)? Why? @ -None What meds were considered but not given or refused? Why? @ -None Did you discuss the management of the patient with other professionals (professionals i.e. , PA, [employer]WALL CONTRACTOR, lab, RT, psych nurse, professor of social work, cream dipper, teacher, trust officer, case management social worker)? Give summary @ -No Was smoking cessation discussed for >3mins.? @ -No Was critical care preformed (if so, how long)? @ -No Were there social determinants of health that impacted care today? How? (Homelessness, low income, unemployed, alcoholism, drug addiction, transportation, low edu. Level, literacy, decrease access to med. care, shelter, rehab)? @ -No Was there de-escalation of care discussed even if they declined (Discuss DNR or withdrawal of care, Hospice)? DNR status @ -No What co-morbidities impacted this encounter? (DM, HTN, Smoking, COPD, CAD, Cancer, CVA, ARF, Chemo, Hep., AIDS, mental health diagnosis, sleep apnea, morbid obesity)? @ -None Was patient admitted / discharged? Hospital course, mention meds given and route, prescriptions, significant lab abnormalities, going to OR and other pertinent info. @ -33-year-old female presenting for COVID testing. History of URI-like symptoms. History and physical exam are conducted. She is negative for influenza, RSV, and COVID. Educated on supportive management of viral URI. Discharged home. Follow-up with PCP. Report back to ER with any new or worsening symptoms. Discussed return parameters and answered all questions. Patient conveyed verbal understanding and agreed to the plan. I discussed this case in detail with my attending Dr. Hoyos Undiagnosed new problem with uncertain prognosis? @ -No Drug Therapy requiring intensive monitoring for toxicity (Heparin, Nitro, Insulin, Cardizem)? @ -No Were any procedures done? @ -No Diagnosis/symptom? @ -URI Acute, or Chronic, or Acute on Chronic? @ -Acute Uncomplicated (without systemic symptoms) or Complicated (systemic symptoms)? @ -Uncomplicated Side effects of treatment? @ -No Exacerbation, Progression, or Severe Exacerbation? @ -No Poses a threat to life or bodily function? How? (Chest pain, USA, OR, pneumonia, PE, COPD, DKA, ARF, appy, cholecystitis, CVA, Diverticulitis, Homicidal, Suicidal, threat to staff... and all critical care pts) @ -No - Lab Data Lab Results 11/10/23 Range/Units 19:18 Influenza Type A (PCR) Not Detected (Not Detectd) Influenza Type B (PCR) Not Detected (Not Detectd) RSV (PCR) Not Detected (Not Detectd) SARS-CoV-2 (PCR) Not Detected (Not Detectd) Disposition Clinical Impression: URI (upper respiratory infection) Disposition: HOME SELF-CARE Condition: Good Instructions (If sedation given, give patient instructions): Upper Respiratory Infection (ED) Additional Instructions: Report back to ER with any new or worsening symptoms. Follow-up with PCP. Is patient prescribed a controlled substance at d/c from ED?: No Referrals: None,Stated [Primary Care Provider] - 1-2 days [facility] [NON-STAFF] - 1-2 days Time of Disposition: 20:31
== END 2023-11-10 20:40 | disposition home or self-care (01) ==
LOC: EC 18:54
DX: J06.9 Acute upper respiratory infection, unspecified (principal); F41.9 Anxiety disorder, unspecified; F32.A Depression, unspecified; F17.290 Nicotine dependence, other tobacco product, uncomplicated; Z79.899 Other long term (current) drug therapy; Z88.2 Allergy status to sulfonamides; Z88.1 Allergy status to other antibiotic agents; Z20.822 Contact with and (suspected) exposure to COVID-19
CPT/HCPCS: 87636; 99283